=== PATIENT | female | born 1995 ===

== ENCOUNTER 2016-08-30 18:14 | Emergency (ER) | payer SELFPAY ==
[2016-08-30 18:28] VITALS: BMI 27.9
[2016-08-30 18:48] VITALS: RESP 18
[2016-08-30] MEDS ORDERED: Bacitracin 500 Units/gm Oint Foilpak UD TOP ONE (19:33)
[2016-08-30] MEDS ORDERED: Bacitracin 500 Units/gm Oint Foilpak UD ONE (19:35)
--- NOTE | 2016-08-30 19:36 | C.PDOC ---
History Of Present Illness 21 y/o female c/o lesion on right breast for a few days; sts it started like a blister and popped, now has an open area. unclear if purulent or watery fluid was in this prior to opening. pt [place] and concerned this is related to her surgeries. denies any fever or chills, no pain at site of lesion. Time Seen by Provider: 08/30/16 18:31 Chief Complaint (Nursing): Abnormal Skin Integrity History Per: Patient History/Exam Limitations: no limitations Onset/Duration Of Symptoms: Days (2) Current Symptoms Are (Timing): Still Present Location Of Injury: Right: Chest (right breast) Past Medical History Reviewed: Historical Data, Nursing Documentation, Vital Signs Vital Signs: Last Vital Signs Temp 98.2 F 08/30/16 19:58 Pulse 75 08/30/16 19:58 Resp 18 08/30/16 19:58 BP 124/75 08/30/16 19:58 Pulse Ox 98 08/30/16 19:58 - Medical History PMH: No Chronic Diseases Other Surgeries: breast reduction, silicone breast implants Family History: States: Unknown Family Hx - Social History Hx Tobacco Use: No Hx Alcohol Use: No Hx Substance Use: No - Immunization History Hx Tetanus Toxoid Vaccination: Yes Hx Influenza Vaccination: Yes Hx Pneumococcal Vaccination: Yes Review Of Systems Constitutional: Negative for: Fever, Chills Cardiovascular: Negative for: Chest Pain Respiratory: Negative for: Cough, Shortness of Breath Skin: Positive for: Lesions (right breast) Physical Exam - Physical Exam Appears: Non-toxic, No Acute Distress Skin: Normal Color, Warm, Dry, Other (2 mm shallow ulcerated area on right areola border at approx 11 o'clock position, no drainage and no surrounding erythema, warmth or swelling, non-tender to palaption. ) Neurological/Psych: Oriented x3, Normal Speech, Normal Cognition ED Course And Treatment O2 Sat by Pulse Oximetry: 100 Medical Decision Making Medical Decision Makin mm shallow ulceration on right breast; possible prior small blister or pimple that is now unroofed, with no signs of infection. will apply bacitracin. Disposition Counseled Patient/Family Regarding: Diagnosis, Need For Followup - Disposition Referrals: Clinic,Med Surg [Primary Care Provider] - Disposition: HOME/ ROUTINE Disposition Time: 19:32 Condition: GOOD Additional Instructions: DO not pick at any skin lesion. Follow up with medical clinic. Return for any worsening symptoms. Forms: Gen Discharge Inst Indonesian Print Language: ENGLISH - Clinical Impression Clinical Impression: Skin irritation
[2016-08-30 20:21] VITALS: BP 124/75; PULSE 75; TEMP 98.2
[2016-08-31 19:59] VITALS: O2SAT 100
== END 2016-08-30 20:00 | disposition home or self-care (01) ==
LOC: SUPCPDRO 18:14 → C.ER 18:14
DX: L98.8 Other specified disorders of the skin and subcutaneous tissue (principal)